=== PATIENT | male | born 1970 | race Two or more races ===

== ENCOUNTER → 2021-05-10 | Outpatient (CLI) | payer OTHER ==
--- NOTE | 2021-05-10 12:05 | KCIC ---
EXAM: Left knee, 3 views. HISTORY: Pain. COMPARISON: None. FINDINGS: 3 views left knee are obtained. There is no fracture, dislocation or subluxation. There is trace joint fluid. There is minimal enthesopathy along the anterior tibial tubercle. IMPRESSION: 1. No acute osseous finding. 2. Trace joint effusion. Electronically signed by: Lucy Hitchcock MD (05/10/2021 12:03 PM) [id number]
== END ==
LOC: KCIC 11:45
PROVIDERS: ATTEND Family Medicine
DX: M76.892 Other specified enthesopathies of left lower limb, excluding foot (principal)
CPT/HCPCS: 73562